=== PATIENT | female | born 1965 | race Caucasian/White ===

== ENCOUNTER 2016-12-29 05:37 | Day surgery (SDC) | payer BC ==
[~2016-12-29 05:37] MED LIST: ADULT LOW DOSE81 MG PO; ADVIL200 M3 PO; ALPH-E/SUCCI400 UNIT; ASPIR 8181 MG; BIOTIN; BIOTIN1 MG; BIOTIN1 MG PO; CALTRATE 600 W1 EACH PO; CALTRATE-600/VI1 TA1; CIPRO500 MG PO; FISH OIL 1,0001 CA1; FLOMAX0.4 M1 PO; FLONASE16 GM; FOLIC ACID; FOLIC ACID1 MG; FOLIC ACID1 MG PO; HYDROCHLOROTH12.5 M2 PO; IBUPROFEN200 M2 PO; LIPOFEN150 M1 PO; MAXALT10 M1 PO; MEGA RED; MEGA RED PO; NORCO 5-325 TA1 EACH PO; OXYCODONE/APAP PO; PERCOCET 5/3251 TAB PO; PROTONIX40 M2 PO; TREXALL10 MG PO; TRICOR; TRICOR145 M1; TRICOR145 M1 PO; VITAMIN D31000 UNI3 PO; VITAMIN D50000 UNIT PO; VITAMIN E; VITAMIN E800 UNIT PO; ZOFRAN ODT4 MG/UDTAB PO; ZOFRAN4 MG PO
[2016-12-29 08:14] LABS: ANION GAP 14 mmol/L (0-20); BLOOD UREA NITROGEN 19 mg/dl (6-24); CALCIUM 9.1 mg/dl (8.5-10.5); CARBON DIOXIDE-VENOUS 29 mmol/L (22-32); CHLORIDE 105 mmol/l (96-110); CREATININE 1.16 mg/dl (0.50-1.10); GLUCOSE 90 mg/dL (70-110); POTASSIUM 3.5 mmol/L (3.7-5.1); SODIUM 144 mmol/L (135-145); eGFR VALUE FOR BLACK 64 mL/Min
== END 2016-12-29 13:15 ==
LOC: SRG 05:37 → SHSB 05:40 → ORE 07:34 → PACU 09:37 → SHSB 10:25
PROVIDERS: Urology
PROC: 0T778DZ Dilation of Left Ureter with Intraluminal Device, Via Natural or Artificial Opening Endoscopic (ICD-10-PCS; principal; 2016-12-29)
PROC: 0TF4XZZ Fragmentation in Left Kidney Pelvis, External Approach (ICD-10-PCS; principal; 2016-12-29)
PROC: 0TF3XZZ Fragmentation in Right Kidney Pelvis, External Approach (ICD-10-PCS; principal; 2016-12-29)
DX: N20.0 Calculus of kidney (principal); I10 Essential (primary) hypertension; Z88.8 Allergy status to other drugs, medicaments and biological substances; K21.9 Gastro-esophageal reflux disease without esophagitis; G43.909 Migraine, unspecified, not intractable, without status migrainosus; M85.80 Other specified disorders of bone density and structure, unspecified site; E78.5 Hyperlipidemia, unspecified; E55.9 Vitamin D deficiency, unspecified; E87.6 Hypokalemia; Z90.49 Acquired absence of other specified parts of digestive tract; Z79.899 Other long term (current) drug therapy; Z90.710 Acquired absence of both cervix and uterus
CPT/HCPCS: C1769; C2617; J0690; J2175